=== PATIENT | male | born 1950 | race Caucasian/White ===

== ENCOUNTER 2016-08-04 12:48 | Outpatient (CLI) | payer MEDICARE, OTHER | END 2016-08-04 12:49 | disposition home or self-care (01) | DX: Z12.5 Encounter for screening for malignant neoplasm of prostate (principal); E29.1 Testicular hypofunction | CPT/HCPCS: 36415; 84403; G0103 ==

== ENCOUNTER 2016-08-13 11:24 | Outpatient (CLI) | payer MEDICARE, OTHER | END 2016-08-13 11:25 | disposition home or self-care (01) | DX: E29.1 Testicular hypofunction (principal) ==